=== PATIENT | male | born 1960 | race Caucasian/White ===

== ENCOUNTER 2018-12-24 00:41 | Inpatient (IN) | payer BC ==
[2018-12-23 13:22] LABS: INR 0.94
[2018-12-24] VITALS (12 sets, daily range): BP systolic 106–146; BP diastolic 70–98
[~2018-12-24] VITALS: Ht 185.4 cm; Wt 122.5 kg
[~2018-12-24 00:41] MED LIST: FLUO-177 PO; HYDR-2966 PO; MELO-207 PO
--- NOTE | 2018-12-24 04:56 | LEVENE H&P ---
DATE OF ADMISSION: December 24, 2018 IDENTIFICATION/CHIEF COMPLAINT Jed is a 58-year-old gentleman with a chief complaint of bilateral knee pain. HISTORY OF PRESENT ILLNESS Patient has a longstanding history of knee arthritis, progressively painful and debilitating, refractory to conservative care. Surgery is indicated to relieve symptoms after failure of nonoperative measures. PAST MEDICAL HISTORY Notable for sleep apnea, using a CPAP. ALLERGIES DEMEROL. CURRENT MEDICATIONS 1. Fluoxetine 20 mg p.o. daily. 2. Hydrochlorothiazide 25 mg p.o. daily. 3. Mobic 15 mg p.o. daily. 4. Various vitamins. PAST SURGICAL HISTORY Notable for multiple orthopedic surgeries, including prior knee arthroscopy, shoulder surgery, and elbow surgery. REVIEW OF SYSTEMS Notable for remote history of kidney stones. Otherwise negative. FAMILY HISTORY Negative. SOCIAL HISTORY Negative for tobacco use. He drinks alcohol, mostly beer on a social basis. Denies abuse. PHYSICAL EXAMINATION GENERAL: This is a well-developed, well-nourished male who appears stated age. HEENT: Normocephalic, atraumatic. NECK: Supple. LUNGS: Clear. HEART: Regular. ABDOMEN: Soft. ORTHOPEDIC: Both knees have crepitus, effusions present. Gross stability is good. Extensor function is intact. He has stiff at end range, but no gross block to motion. Radiographs demonstrate degenerative joint disease in both knees. The right knee is a bit more severe than the left. Both have advanced medial compartment wear as well as some patellofemoral changes. ASSESSMENT Bilateral knee end-stage degenerative joint disease, refractory to conservative care. PLAN Jed and I discussed the options again today, including the option of ongoing conservative care, the option of staged arthroplasty with treatment of his more symptomatic right knee first, or the option of single-stage bilateral knee replacement. He strongly prefers to have both knees fixed at a single surgical setting, which is reasonable. This will consist of single-stage bilateral total knee arthroplasty. Risks, benefits, and the anticipated rehab course are outlined, and all of his questions are answered. The risks of the procedure include but are not limited to , major medical or anesthetic complications, infection, neurovascular injury, blood transfusion, stiffness, scarring, fracture, tendon rupture, instability, implant loosening, migration, or failure, persistent or recurrent pain, need for additional surgery, and other unforeseen. He understands and wishes to proceed. Signed permit is placed in the chart. No guarantees are given or implied. MTDD
[2018-12-24] MEDS ORDERED: VANCOMYCIN 1 GM VIAL ONE (09:29)
[2018-12-24] MEDS ORDERED: ROPIVACAINE/EPI/CLONIDINE/KET 50 ML SYRINGE INJ ONE ×4 (11:00→13:15)
[2018-12-24] MEDS ORDERED: CELECOXIB 200 MG CAP PO ONE (11:00)
[2018-12-24] MEDS ORDERED: FAMOTIDINE 20 MG TAB PO ONE (11:00)
[2018-12-24] MEDS ORDERED: LIDOCAINE/SOD BICARB 8.4% SYR ID ONE (11:00)
[2018-12-24] MEDS ORDERED: TRANEXAMIC AC 1000 MG/10ML SDV 1,000 MG in DEXTROSE 5% 50 ML BAG 50 ML IV ONE (11:00)
[2018-12-24] MEDS ORDERED: MIDAZOLAM 2 MG/2 ML VIAL IVP PRN (11:00)
[2018-12-24] MEDS ORDERED: NORMOSOL R SOLN(*) 1000 ML BAG 1,000 ML IV PRN ×2 (11:00→14:05)
[2018-12-24] MEDS ORDERED: ACETAMINOPHEN 500 MG TAB PO ONE (11:00)
[2018-12-24] MEDS ORDERED: PREGABALIN 150 MG CAPSULE PO ONE (11:00)
[2018-12-24] MEDS ORDERED: ceFAZolin(*) 2GM/D5W 50ML 50 ML IVPB ONE (11:00)
[2018-12-24] MEDS ORDERED: PROPOFOL EMUL(*) 10MG/ML 20 ML 40 ML ONE (11:29)
[2018-12-24] MEDS ORDERED: HYDROmorphone HCL 2 MG/ML SDV ONE (11:29)
[2018-12-24] MEDS ORDERED: ONDANSETRON 4 MG/2 ML VIAL ONE (11:29)
[2018-12-24] MEDS ORDERED: FLUSH 10 ML SYR IVP PRN (14:05)
[2018-12-24] MEDS ORDERED: ZOLPIDEM TARTRATE 5 MG TAB PO PRN (14:05)
[2018-12-24] MEDS ORDERED: BISACODYL 10 MG SUPP PR PRN (14:05)
[2018-12-24] MEDS ORDERED: diphenhydrAMINE 50 MG/ML VIAL IVP PRN (14:05)
[2018-12-24] MEDS ORDERED: MAGNESIUM HYDROXIDE* 30ML UDCP PO PRN (14:05)
[2018-12-24] MEDS ORDERED: diphenhydrAMINE 25 MG CAP PO PRN (14:05)
[2018-12-24] MEDS ORDERED: BENZOCAINE/MENTHOL 1 EACH LOZG PO PRN (14:05)
[2018-12-24] MEDS ORDERED: PROMETHAZINE 25 MG/ML 1 ML AMP IVP PRN (14:05)
[2018-12-24] MEDS ORDERED: ACETAMINOPHEN 325 MG TAB PO PRN (14:05)
[2018-12-24] MEDS ORDERED: fentaNYL CITR 100 MCG/2 ML AMP ONE (14:27)
[2018-12-24] MEDS: APAP/HYDROCODONE 325/7.5 TAB PO PRN ×3 (15:31→23:50)
--- NOTE | 2018-12-24 15:38 | Hospitalist Consultation ---
History of Present Illness Requesting Physician Dr. Hamm Reason for Consult Medical Management of Comorbidities Chief Complaint s/p bilateral knee replacement History of Present Illness He was admitted s/p bilateral knee replacement. It is reported the surgery went well and without complication. History Problems: (1) Depression Status: Chronic (2) Kidney stones Status: Chronic Home Meds Reported Medications Meloxicam (MELOXICAM) 15 Mg Tablet, 15 MG PO QDAY 12/18/18 Hydrochlorothiazide (HYDROCHLOROTHIAZIDE) 25 Mg Tablet, 1 TAB PO QDAY, TAB 12/18/18 Fluoxetine Hcl (FLUOXETINE HCL) 20 Mg Capsule, 20 MG PO QDAY, CAPSULE 12/18/18 Allergies: Coded Allergies: meperidine (Verified Adverse Reaction, Mild, pain intensifies, 12/18/18) Patient History: Alzheimer's disease MOTHER, , Age:70 Diabetes mellitus MOTHER, , Age:70 FH: testicular cancer BROTHER OR SISTER (brother had at age of 26) Hx Smoking: No Smoking Status: Never Smoker Exposure to Second Hand Smoke?: No Caffeine Intake: Coffee Caffeine/Cups Per Day: 1-2 cups Hx Alcohol Use: Yes (social drinking, 2-4 drinks/wk) Alcohol Used: Beer, Liquor Hx Substance Use Disorder: No ("couple times a month") Social Drugs: Marijuana History of IV Drug Use: No Review of Systems All Systems Reviewed/Normal: Yes, Except as Noted Exam Vital Signs Vital Signs Date Time Temp Pulse Resp B/P (MAP) Pulse Ox O2 Delivery O2 Flow Rate FiO2 12/24/18 15:02 97.7 62 12 118/82 (94) 93 Nasal Cannula 2.0 General Appearance: Alert, Awake, No Acute Distress, Afebrile Neuro: No Gross deficits Cardiovascular: Regular Rate and Rhythm Respiratory: No Respiratory Distress, Clear to Auscultation GI: Abd Soft and Non-Tender Extremities: Warm, Perfused Psych: Alert & Oriented X3, Appropriate Mood & Affect Assessment and Plan Problems: (1) Status post bilateral knee replacements Status: Acute Assessment & Plan: Followed by Dr. Hamm. He will be placed on Aspirin for DVT prophylaxis. (2) Depression Status: Chronic Assessment & Plan: Continue chronic fluoxetine. (3) Kidney stones Status: Chronic Assessment & Plan: He is on chronic treatment with hydrochlorothiazide. This will be held initially, can likely resume in two days. (4) AD (obstructive sleep apnea) Status: Chronic Assessment & Plan: He is on chronic treatment with CPAP. He did bring his CPAP to use during admission. Venous Thromboembolism Antithrombotics Is Pt On Any Antithrombotics?: No ARACELI MARQUEZ Dec 24, 2018 15:38
--- NOTE | 2018-12-24 16:43 | NUR ---
Physical Therapy Impression PT merlyn complete. Physical Therapy Goals 1. Mod I bed mobility. 2. SBA transfers. 3. SBA ambulation x 50' with appropraite assistive device. 4. CGA ascend/descend 2 stairs. 5. Mod I use of CPM. Patient's Goals
[2018-12-24] MEDS: CELECOXIB 200 MG CAP PO SCH (17:23)
[2018-12-24] MEDS: DIAZEPAM 5 MG TAB PO PRN (17:23)
[2018-12-24] MEDS: ceFAZolin(*) 1 GM VIAL 1 GM in NS(*) 0.9% 100 ML MINI-BAG 100 ML IVPB SCH (17:24)
--- NOTE | 2018-12-24 17:30 | RADIOLOGY IMAGING REPORT ---
FACILITY: [facility] - [place] PATIENT NAME: Jed Parra : 1960 MR: [id number] V: [id number] EXAM DATE: ORDERING PHYSICIAN: FABIAN SANCHEZ TECHNOLOGIST: Location: [facility] [place] Patient: Jed Parra : 1960 Visit/Account:[id number] Date of Sevice: 12/24/2018 XR KNEE 1-2 VIEWS HISTORY: POST OP BILATERAL TKA Additional history: Bilateral knee arthroplasties COMPARISON: None. FINDINGS: Three views bilateral knees demonstrate bilateral total knee arthroplasties with patellar resurfacing . Hardware unremarkable. Iatrogenic air noted within the hip joints. No fractures. IMPRESSION: Unremarkable bilateral total knee arthroplasties Report Dictated By: Ryan Loco MD at 12/24/2018 5:25 PM Report E-Signed By: Ryan Loco MD at 12/24/2018 5:27 PM WSN:ISMA
--- NOTE | 2018-12-24 20:26 | OPERATIVE REPORT 1 ---
EVENT DATE: December 24, 2018 SURGEON: Joe Hamm MD ANESTHESIOLOGIST: Lalo Villanueva MD ANESTHESIA: General plus spinal. LANDSCAPE ARCHITECTURE PROFESSOR: Aung Forbes PA-C PREOPERATIVE DIAGNOSIS Bilateral knee degenerative joint disease. POSTOPERATIVE DIAGNOSIS Bilateral knee degenerative joint disease. PROCEDURE PERFORMED Bilateral single-stage total knee arthroplasty. ESTIMATED BLOOD LOSS Minimal. DRAINS None. SPECIMENS None. COMPLICATIONS None apparent. TOURNIQUET TIME On the right is 59 minutes, on the left is 67 minutes. IMPLANTS USED On the right, Dandre Triathlon knee system with 6 right PS femur, 6 standard tibial baseplate, 36 mm universal, symmetric, all-polyethylene patellar button, and a 13 mm PS tibial tray liner. On the left, it is a 6 left PS femur, 6 standard tibial baseplate, 36 mm universal, symmetric, all-polyethylene patellar button, and an 11 mm PS tibial tray liner. Polyethylene is all X3. INDICATIONS Jed is a 58-year-old gentleman with intractable pain and disability related to end-stage knee arthritis. Surgery is indicated to relieve symptoms after failure of lesser measures. DESCRIPTION OF PROCEDURE Patient is taken to the operating room and placed supine on the operating table. General anesthesia is induced after spinal block is administered by the anesthesiologist. Antibiotics and TXA are administered IV, and both lower extremities are simultaneously prepped and draped in the usual sterile fashion for orthopedic surgery. The right lower extremity is exsanguinated with an Esmarch bandage. Tourniquet is inflated to 250 mmHg. A midline longitudinal incision is made. Dissection is carried down to the extensor mechanism and then far enough medially to allow medial parapatellar arthrotomy be performed. Patella is everted. Knee is brought into flexed position. Fat pad, anterior horns of the menisci, and the cruciate ligaments are debrided. Subperiosteal medial release is initiated in a titrated fashion to start to balance the knee. A step drill is used to enter the distal femur. The 10-inch long alignment guide is used to engage the isthmus, cut set for 5 degrees valgus relative to the anatomic axis. The 10 mm resection block is applied to the distal femur. Cuts made with an oscillating saw. AP sizing guide is applied to the distal femoral cut, positioned for 3 degrees of external rotation relative to the posterior condyles. Size 6 is optimal without risk of notching. A four-in-one cutting block is applied. Anterior, posterior, posterior chamfer, and anterior chamfer cuts are made respectively. PS block is applied and centered. Medial and lateral bone is removed from the box. Trial femur has nice lrey-jl-huff fit. Attention is turned to tibial preparation. Extramedullary guide is applied, positioned for varus, valgus, posterior slope, and rotation. This is set to resect 9 mm from the relatively intact lateral tibial plateau. It is dropped down a couple millimeters to assure an adequate cut. Block is pinned. Extramedullary alignment check is made, and the cut is made with an oscillating saw. After osteophyte removal and removal of the posterior condylar bone, gaps are balanced symmetrically, and no additional release is required. The 6 baseplate provides optimal coverage without overhang. This is inserted along with the trial liner and the trial femur. Knee is brought to extension. Patella is taken from a starting thickness of 24 mm to a residual of 14 with a patellar clamp and oscillating saw. The 36 provides optimal coverage without overhang. Lug holes are drilled. Patella tracks nicely with the no-touch technique. Unstable bipartite patellar fragments are excised without damaging the extensor mechanism. The final tibial preparation consists of assuring appropriate rotational and translational position of the component. The boss is reamed. Fin is punched. Surfaces are lavaged. A mix of methacrylate is made, and the components are cemented in a single stage. Once the cement is fully polymerized, tourniquet is deflated, and hemostasis is assured. Wound is copiously lavaged. The 13 PS tibial tray liner trial fills up the gap ideally, allowing the knee to drop to full extension without hyperextension, providing optimal soft tissue tension and stability. Tray is lavaged and dried. The actual liner is locked into the baseplate. Joint is reduced. Arthrotomy is closed in flexion with #2 Ethibond. Vancomycin powder is placed deep in the wound. The subcutaneous tissue is lavaged. Hemostasis is assured. Derm is closed with 3-0 Vicryl, and the skin is closed with a ZipLine closure device. Xeroform is applied for a dry, sterile dressing, and a stockinette is placed until placement of the final dressings after completion of the contralateral knee. An identical procedure was then performed on the left knee with the exception of the previously noted tourniquet time. Of course, femoral component is the left-sided femoral component, and slightly less extensor release is required because there is less medial wear, although there is end-stage arthritis in the patellofemoral compartment and diffuse grade 3 change in the medial compartment. At the completion of the second procedure, identical closure is performed, and then both knees are formally dressed. Patient is awakened from anesthesia and taken to the recovery room in stable condition having tolerated the procedure well. PLAN Plan is for standard TKA rehab protocol. MTDD
[2018-12-25] MEDS: ceFAZolin(*) 1 GM VIAL 1 GM in NS(*) 0.9% 100 ML MINI-BAG 100 ML IVPB SCH ×2 (02:51→10:43)
[2018-12-25] MEDS: DIAZEPAM 5 MG TAB PO PRN ×3 (03:03→20:36)
[2018-12-25] MEDS: APAP/HYDROCODONE 325/7.5 TAB PO PRN ×4 (04:01→16:23)
[2018-12-25] MEDS: FLUoxetine HCL 20 MG CAP PO SCH (08:19)
[2018-12-25] MEDS: ASPIRIN 325 MG TAB PO SCH (08:19)
[2018-12-25] MEDS: CELECOXIB 200 MG CAP PO SCH ×2 (08:19→16:22)
--- NOTE | 2018-12-25 10:32 | Hospitalist Progress Note ---
Subjective Progress Notes Subjective He is s/p bilateral knee replacement. He had no acute events overnight. Patient Complains of: Cardiovascular: No: Chest Pain Respiratory: No: Shortness of Breath Physical Exam Vital Signs Date Time Temp Pulse Resp B/P (MAP) Pulse Ox O2 Delivery O2 Flow Rate FiO2 12/25/18 09:15 92 Nasal Cannula 1.0 12/25/18 04:14 97.6 58 14 Intake and Output 12/25/18 01:00 Intake Total 2910 ml Output Total 940 ml Balance 1970 ml Intake Oral 860 ml IV Total 2050 ml Output Urine Total 940 ml General Appearance: Alert, Awake, No Acute Distress, Afebrile Neuro: No Gross deficits Cardiovascular: Regular Rate and Rhythm Respiratory: No Respiratory Distress, Clear to Auscultation Psych: Alert & Oriented X3, Appropriate Mood & Affect Assessment and Plan Problems: (1) Status post bilateral knee replacements Status: Acute Assessment & Plan: Followed by Dr. Hamm. He will be placed on Aspirin for DVT prophylaxis. (2) Depression Status: Chronic Assessment & Plan: Continue chronic fluoxetine. (3) Kidney stones Status: Chronic Assessment & Plan: He is on chronic treatment with hydrochlorothiazide. This will be held initially, can likely resume in two days. (4) AD (obstructive sleep apnea) Status: Chronic Assessment & Plan: He is on chronic treatment with CPAP. He did bring his CPAP to use during admission. Exam Sepsis Risk: No Definite Risk ARACELI MARQUEZ PARAPROFESSIONAL AIDE TEACHER Dec 25, 2018 10:32
[2018-12-25 11:37] VITALS: BP 118/79
[2018-12-25] MEDS ORDERED: MORPHINE 2 MG/ML SYR IVP ONE (14:30)
--- NOTE | 2018-12-25 14:41 | NUR ---
Physical Therapy Impression Pt progressing well demonstrating SBA for supine>sit, CGA/SBA for sit<>stand, and CGA/SBA to ambulate 60' with RW. Pt able to ambulate on room air maintaining SO2 >88%. Recommend OP PT at [facility]. Physical Therapy Goals 1. Mod I bed mobility. 2. SBA transfers. 3. SBA ambulation x 50' with appropraite assistive device. 4. CGA ascend/descend 2 stairs. 5. Mod I use of CPM. Patient's Goals
--- NOTE | 2018-12-25 14:47 | NUR ---
Physical Therapy Impression Pt with increased pain at beginning of session but reports improved pain with movement and ambulation. Pt able to transfer supine>sit with SBA, sit>stand from an elevated bed with SBA, and ambulate 100' with RW and SBA with SO2 maintaining >88% on room air. Pt left sitting in chair at 1/10 pain. Physical Therapy Goals 1. Mod I bed mobility. 2. SBA transfers. 3. SBA ambulation x 50' with appropraite assistive device. 4. CGA ascend/descend 2 stairs. 5. Mod I use of CPM. Patient's Goals
[2018-12-25 17:18] VITALS: BP 118/79
[2018-12-25 19:10] VITALS: BP 105/60
[2018-12-26] MEDS: APAP/HYDROCODONE 325/7.5 TAB PO PRN ×6 (00:21→23:42)
[2018-12-26 00:31] VITALS: BP 122/68
[2018-12-26] MEDS ORDERED: MORPHINE 4 MG/ML SDV IVP ONE (03:25)
[2018-12-26 07:17] VITALS: BP 125/67
[2018-12-26] MEDS: ASPIRIN 325 MG TAB PO SCH (08:44)
[2018-12-26] MEDS: FLUoxetine HCL 20 MG CAP PO SCH (08:44)
[2018-12-26] MEDS: CELECOXIB 200 MG CAP PO SCH ×2 (08:44→18:07)
--- NOTE | 2018-12-26 08:46 | NUR ---
Physical Therapy Impression Pt progressing very well with functional mobility, despite high pain levels last night. Julia for bed mobility, SBA for transfers from regular height bed with RW. Ambulation x150' with RW, SpO2 88% on room air with mobility. Pt will benefit from stair training prior to d/c. Physical Therapy Goals 1. Mod I bed mobility. 2. SBA transfers. 3. SBA ambulation x 50' with appropraite assistive device. 4. CGA ascend/descend 2 stairs. 5. Mod I use of CPM. Patient's Goals
--- NOTE | 2018-12-26 09:40 | Hospitalist Progress Note ---
Subjective Progress Notes Subjective He was admitted s/p bilateral knee replacement. He had no acute events overnight. Patient Complains of: Cardiovascular: No: Chest Pain Respiratory: No: Shortness of Breath Physical Exam Vital Signs Date Time Temp Pulse Resp B/P (MAP) Pulse Ox O2 Delivery O2 Flow Rate FiO2 12/26/18 09:05 85 12/26/18 07:30 Room Air 12/26/18 07:17 98.4 76 16 125/67 (86) 12/26/18 00:31 4.0 Intake and Output 12/26/18 01:00 Intake Total 600 ml Output Total 200 ml Balance 400 ml Intake Oral 600 ml Output Urine Total 200 ml # Voids 3 General Appearance: Alert, Awake, No Acute Distress, Afebrile Neuro: No Gross deficits Cardiovascular: Regular Rate and Rhythm Respiratory: No Respiratory Distress, Clear to Auscultation GI: Soft and Non-Tender Psych: Alert & Oriented X3, Appropriate Mood & Affect Assessment and Plan Problems: (1) Status post bilateral knee replacements Status: Acute Assessment & Plan: Followed by Dr. Hamm. He will be placed on Aspirin for DVT prophylaxis. (2) Depression Status: Chronic Assessment & Plan: Continue chronic fluoxetine. (3) Kidney stones Status: Chronic Assessment & Plan: He is on chronic treatment with hydrochlorothiazide. This will be held initially, can likely resume in two days. (4) AD (obstructive sleep apnea) Status: Chronic Assessment & Plan: He is on chronic treatment with CPAP. He did bring his CPAP to use during admission. Exam Sepsis Risk: No Definite Risk ARACELI MARQUEZ SENIOR ANIMAL TRAINER Dec 26, 2018 09:40
--- NOTE | 2018-12-26 13:44 | NUR ---
Physical Therapy Impression The pt has met all PT goals and is safe to d/c home from a mobility stand point when medically appropriate. PT provided visual and verbal instruction for stair negotiation and pt was able to asc/desc 2 stairs backwards with Luis Armando. Pt with excellent tolerance to all mobility, no further PT visits planned. He will d/c with OP PT services when medically appropriate. Physical Therapy Goals 1. Mod I bed mobility. 2. SBA transfers. 3. SBA ambulation x 50' with appropraite assistive device. 4. CGA ascend/descend 2 stairs. 5. Mod I use of CPM. Patient's Goals
[2018-12-26] MEDS: DIAZEPAM 5 MG TAB PO PRN ×2 (15:37→21:09)
[2018-12-26 19:49] VITALS: BP 134/75
[2018-12-27] MEDS: DIAZEPAM 5 MG TAB PO PRN (04:01)
[2018-12-27] MEDS: APAP/HYDROCODONE 325/7.5 TAB PO PRN ×2 (04:01→08:59)
[2018-12-27 06:47] VITALS: BP 135/81
[2018-12-27] MEDS: ASPIRIN 325 MG TAB PO SCH (08:57)
[2018-12-27] MEDS: FLUoxetine HCL 20 MG CAP PO SCH (08:57)
[2018-12-27] MEDS: CELECOXIB 200 MG CAP PO SCH (08:57)
[2018-12-27] MEDS ORDERED: OXYC-823 PO (09:23)
[2018-12-27] MEDS ORDERED: HYDR-654 PO (09:24)
[2018-12-27] MEDS ORDERED: ASPI-757 PO (09:30)
--- NOTE | 2018-12-27 09:33 | Hospitalist Progress Note ---
Subjective Progress Notes Subjective He was admitted s/p bilateral knee replacement. He had no acute events overnight. He would like to go home today. Patient Complains of: Cardiovascular: No: Chest Pain Respiratory: No: Shortness of Breath Physical Exam Vital Signs Date Time Temp Pulse Resp B/P (MAP) Pulse Ox O2 Delivery O2 Flow Rate FiO2 12/27/18 07:58 90 Room Air 12/27/18 06:47 98.2 82 16 135/81 (99) 12/27/18 03:11 2.0 Intake and Output 12/27/18 01:00 Intake Total 540 ml Balance 540 ml Intake Oral 540 ml # Voids 3 General Appearance: Alert, Awake, No Acute Distress, Afebrile Neuro: No Gross deficits Cardiovascular: Regular Rate and Rhythm Respiratory: No Respiratory Distress, Clear to Auscultation GI: Soft and Non-Tender Extremities: Warm, Perfused Psych: Alert & Oriented X3, Appropriate Mood & Affect Assessment and Plan Problems: (1) Status post bilateral knee replacements Status: Acute Assessment & Plan: Followed by Dr. Hamm. He will be placed on Aspirin for DVT prophylaxis. (2) Depression Status: Chronic Assessment & Plan: Continue chronic fluoxetine. (3) Kidney stones Status: Chronic Assessment & Plan: He is on chronic treatment with hydrochlorothiazide. This was held initially, but can resume usual dose when he returns home. (4) AD (obstructive sleep apnea) Status: Chronic Assessment & Plan: He is on chronic treatment with CPAP. He did bring his CPAP to use during admission. He will require 2L oxygen bleed in at this time. He will follow up with PCP within two weeks. Exam Sepsis Risk: No Definite Risk ARACELI MARQUEZ WIND ENERGY PROJECT MANAGER Dec 27, 2018 09:33
== END 2018-12-27 11:05 | disposition home or self-care (01) | DRG 462 ==
LOC: OR 00:41 → MED 15:00
PROVIDERS: ADMIT Orthopaedic Surgery; ATTEND Orthopaedic Surgery
PROC: 0SRC0J9 Replacement of Right Knee Joint with Synthetic Substitute, Cemented, Open Approach (ICD-10-PCS; 2018-12-24)
PROC: 5A09357 Assistance with Respiratory Ventilation, Less than 24 Consecutive Hours, Continuous Positive Airway Pressure (ICD-10-PCS; 2018-12-24)
PROC: 0SRD0J9 Replacement of Left Knee Joint with Synthetic Substitute, Cemented, Open Approach (ICD-10-PCS; principal; 2018-12-24 09:56)
DX: M17.0 Bilateral primary osteoarthritis of knee (principal); I10 Essential (primary) hypertension; E11.9 Type 2 diabetes mellitus without complications; F32.9 Major depressive disorder, single episode, unspecified; N20.0 Calculus of kidney; G47.33 Obstructive sleep apnea (adult) (pediatric); Z88.8 Allergy status to other drugs, medicaments and biological substances; Z99.81 Dependence on supplemental oxygen
CPT/HCPCS: 36415; 85610; 86850; 86900; 86901; 94660; 94667; 97161; C1713; C1776; J0690; J1170; J2250; J2270; J2405; J2704; J3010; J3370; J7060